=== PATIENT | female | born 1985 | race Two or more races ===

== ENCOUNTER 2017-08-29 08:44 | Outpatient (CLI) | payer OTHER ==
[~2017-08-29] VITALS: Ht 162.6 cm; Wt 73.9 kg
== END 2017-08-29 09:00 | disposition home or self-care (01) ==
LOC: OFIC 805 08:44
DX: R04.0 Epistaxis (principal); D68.8 Other specified coagulation defects

== ENCOUNTER 2018-11-15 14:49 | Outpatient (CLI) | payer OTHER ==
[~2018-11-15] VITALS: Ht 152.4 cm; Wt 72.6 kg
== END 2018-11-15 15:00 | disposition home or self-care (01) ==
LOC: OFIC 805 14:49
DX: R04.0 Epistaxis (principal); J30.89 Other allergic rhinitis

== ENCOUNTER 2018-11-26 07:05 | Outpatient (CLI) | payer OTHER | END 2018-11-26 08:42 | disposition home or self-care (01) | LOC: TOM 07:05 | DX: J30.89 Other allergic rhinitis (principal); J32.8 Other chronic sinusitis ==

== ENCOUNTER 2018-12-06 14:19 | Outpatient (CLI) | payer OTHER ==
[~2018-12-06] VITALS: Ht 152.4 cm; Wt 72.6 kg
== END 2018-12-06 14:35 | disposition home or self-care (01) ==
LOC: OFIC 805 14:19
DX: J30.89 Other allergic rhinitis (principal); R04.0 Epistaxis; R22.1 Localized swelling, mass and lump, neck